=== PATIENT | female | born 1975 | race Caucasian/White ===

== ENCOUNTER 2017-05-25 23:20 | Emergency (ER) | payer OTHER ==
[~2017-05-25] VITALS: Ht 165.1 cm; Wt 112.3 kg
[~2017-05-25 23:20] MED LIST: ALBU8.5H5; FLUT1DIS3 INH; IPRA3AMP NPPB; IPRA3AMP18; PRED10TA PO; [UNRECOGNIZED DRUG - CODE] PO
[2017-05-25] MEDS ORDERED: ALBUTEROL/IPRATROPIUM 2.5MG/0.5MG, 3 ML ONE ×2 (23:50)
[2017-05-26] MEDS ORDERED: SODIUM CHLORIDE 0.9% 1,000ML IVBOLUS ONE
[2017-05-26] MEDS ORDERED: methylPREDNISolone SOD SUCC 125 MG/2 ML IVP ONE
[2017-05-26] MEDS ORDERED: KETOROLAC 30 MG/1 ML ONE
[2017-05-26] MEDS ORDERED: KETOROLAC 30 MG/1 ML IVPush ONE
[2017-05-26] MEDS ORDERED: methylPREDNISolone SOD SUCC 125 MG/2 ML ONE
[2017-05-26] MEDS ORDERED: ALBUTEROL SULFATE 2.5 MG/3 ML NPPB ONE
[2017-05-26 00:25] VITALS: BP 108/73
[2017-05-26 00:25] LABS: HEMATOCRIT 44.1 % (34.6-47.8); HEMOGLOBIN 14.9 g/dL (11.7-16.4); WHITE BLOOD COUNT 12.3 x10^3/uL (3.4-10)
[2017-05-26] MEDS ORDERED: ALBUTEROL/IPRATROPIUM 2.5MG/0.5MG, 3 ML NEB ONE (00:30)
[2017-05-26 00:37] LABS: BLOOD UREA NITROGEN 11 mg/dL (7-18)
[2017-05-26 00:44] LABS: IS PT STATUS REG ER OR PRE ER? YES
== END 2017-05-26 01:11 | disposition home or self-care (01) ==
LOC: ED 23:59
DX: J44.1 Chronic obstructive pulmonary disease with (acute) exacerbation (principal)
CPT/HCPCS: 36415; 71010; 80048; 82040; 84484; 85025; 93005; 94640; 96361; 96374; 96375; 99285; J1885; J2930; J7030; J7620

== ENCOUNTER 2017-06-09 22:29 | Emergency (ER) | payer OTHER ==
[2017-06-09] MEDS ORDERED: ALBUTEROL/IPRATROPIUM 2.5MG/0.5MG, 3 ML NPPB SCH (23:00)
[2017-06-10] MEDS ORDERED: MAGNESIUM SULFATE PMX 2GM/50ML 50 ML IV ONE (00:30)
[2017-06-10] MEDS ORDERED: PLEASE ENTER WEIGHT MC SCH (01:00)
[2017-06-10 01:03] LABS: BLOOD UREA NITROGEN 19 mg/dL (7-18)
[2017-06-10 01:16] VITALS: BP 134/77
== END 2017-06-10 01:37 | disposition home or self-care (01) ==
LOC: ED 22:43
DX: J45.31 Mild persistent asthma with (acute) exacerbation (principal); J44.9 Chronic obstructive pulmonary disease, unspecified
CPT/HCPCS: 36415; 80048; 93005; 94640; 99285; J3475; J7512; J7620

== ENCOUNTER 2017-07-07 11:10 | Emergency (ER) | payer SELFPAY ==
[~2017-07-07] VITALS: Ht 167.6 cm; Wt 105.0 kg
[2017-07-07] MEDS ORDERED: SODIUM CHLORIDE FLUSH 10ML SYR IVF ONE (11:30)
[2017-07-07] MEDS ORDERED: MAGNESIUM SULFATE 1 GM/2 ML IVPush ONE (11:30)
[2017-07-07] MEDS ORDERED: SODIUM CHLORIDE 0.9% 1,000ML IVBOLUS ONE (11:30)
[2017-07-07] MEDS ORDERED: methylPREDNISolone SOD SUCC 125 MG/2 ML IVP ONE (11:30)
[2017-07-07] MEDS ORDERED: methylPREDNISolone SOD SUCC 125 MG/2 ML ONE (11:38)
[2017-07-07] MEDS: ALBUTEROL/IPRATROPIUM 2.5MG/0.5MG, 3 ML NPPB SCH ×2 (11:38→13:40)
[2017-07-07] MEDS ORDERED: ALBUTEROL/IPRATROPIUM 2.5MG/0.5MG, 3 ML ONE ×2 (11:39→13:37)
[2017-07-07 12:01] LABS: HEMATOCRIT 45.9 % (34.6-47.8); HEMOGLOBIN 15.5 g/dL (11.7-16.4)
[2017-07-07 12:10] LABS: BLOOD UREA NITROGEN 10 mg/dL (7-18)
[2017-07-07] MEDS ORDERED: MAGNESIUM SULFATE 1 GM in SODIUM CHLORIDE 0.9% 50 ML IV ONE (13:00)
[2017-07-07 13:53] VITALS: BP 123/74
== END 2017-07-07 14:02 | disposition home or self-care (01) ==
LOC: ED 13:56
DX: J80 Acute respiratory distress syndrome (principal); J45.51 Severe persistent asthma with (acute) exacerbation; Z88.6 Allergy status to analgesic agent
CPT/HCPCS: 36415; 71010; 80048; 82040; 85025; 93005; 94640; 96361; 96365; 96375; 99291; J2930; J3475; J7030; J7620

== ENCOUNTER 2017-08-30 09:52 | Emergency (ER) | payer SELFPAY ==
[~2017-08-30] VITALS: Ht 167.6 cm; Wt 91.0 kg
[2017-08-30 10:35] LABS: HEMATOCRIT 45.5 % (34.6-47.8); HEMOGLOBIN 15.8 g/dL (11.7-16.4); WHITE BLOOD COUNT 8.9 x10^3/uL (3.4-10)
[2017-08-30 10:47] LABS: BLOOD UREA NITROGEN 12 mg/dL (7-18)
[2017-08-30] MEDS: ALBUTEROL SULFATE 2.5 MG/3 ML NPPB SCH ×2 (11:35→12:07)
[2017-08-30] MEDS ORDERED: ALBUTEROL SULFATE 2.5 MG/3 ML ONE ×2 (11:36→11:47)
[2017-08-30 12:29] VITALS: BP 119/73
== END 2017-08-30 13:23 | disposition home or self-care (01) ==
LOC: ED 12:24
DX: J45.901 Unspecified asthma with (acute) exacerbation (principal); J44.9 Chronic obstructive pulmonary disease, unspecified; Z88.1 Allergy status to other antibiotic agents
CPT/HCPCS: 36415; 80048; 82040; 83605; 85025; 87040; 93005; 94640; 99291; J7512; J7613

== ENCOUNTER 2017-10-19 15:40 | Emergency (ER) | payer OTHER ==
[~2017-10-19] VITALS: Ht 167.6 cm; Wt 100.0 kg
[~2017-10-19 15:40] MED LIST changes: +AZIT500V8 PO; -[UNRECOGNIZED DRUG - CODE] PO
[2017-10-19] MEDS ORDERED: ALBUTEROL/IPRATROPIUM 2.5MG/0.5MG, 3 ML NPPB ONE (16:00)
[2017-10-19] MEDS ORDERED: SODIUM CHLORIDE FLUSH 10ML SYR IVF ONE (16:00)
[2017-10-19] MEDS ORDERED: methylPREDNISolone SOD SUCC 125 MG/2 ML IVP ONE (16:00)
[2017-10-19] MEDS ORDERED: ALBUTEROL/IPRATROPIUM 2.5MG/0.5MG, 3 ML ONE ×2 (16:12→21:52)
[2017-10-19] MEDS ORDERED: ALBUTEROL 0.5%, 20ML ONE (16:21)
[2017-10-19] MEDS ORDERED: methylPREDNISolone SOD SUCC 125 MG/2 ML ONE (16:26)
[2017-10-19] MEDS ORDERED: ALBUTEROL 0.5%, 20ML NPPBCONT ONE (16:30)
[2017-10-19] MEDS ORDERED: SODIUM CHLORIDE 0.9% 1,000 ML IV ONE (16:43)
[2017-10-19] MEDS ORDERED: ONDANSETRON 2MG/ML, 2ML IVPush ONE (17:00)
[2017-10-19] MEDS ORDERED: MORPHINE SULFATE 4 MG/ML, 1ML ONE ×3 (17:03→19:11)
[2017-10-19] MEDS ORDERED: ONDANSETRON 2MG/ML, 2ML ONE (17:03)
[2017-10-19 17:08] LABS: BASOPHILS # (AUTO) 0.22 x10^3/uL (0-0.1); BASOPHILS % (AUTO) 2 % (0-1); EOSINOPHILS # (AUTO) 1.01 x10^3/uL (0-0.4); EOSINOPHILS % (AUTO) 7 % (1-7); LYMPHOCYTES # (AUTO) 2.22 x10^3/uL (1-3.4); LYMPHOCYTES % (AUTO) 16 % (22-44); MD NO; MEAN CORPUSCULAR HEMOGLOBIN 32.1 pg (27.0-34.8); MEAN CORPUSCULAR HGB CONC 33.6 g/dL (32.4-35.8); MEAN CORPUSCULAR VOLUME 95.7 fL (80-100); MEAN PLATELET VOLUME 9.9 fL (7.4-10.4); MONOCYTES # (AUTO) 1.27 x10^3/uL (0.2-0.8); MONOCYTES % (AUTO) 9 % (2-9); NEUTROPHILS # (AUTO) 9.31 x10^3/uL (1.8-6.8); NEUTROPHILS % (AUTO) 66 % (42-75); PLATELET COUNT 213 x10^3/uL (130-400); RED BLOOD COUNT 4.81 x10^6/uL (3.82-5.3); RED CELL DISTRIBUTION WIDTH 13.4 % (9.6-15.2)
[2017-10-19 17:16] LABS: ANION GAP 6 mmol/L (5-15); CALCIUM 8.5 mg/dL (8.5-10.1); CHLORIDE 110 mmol/L (98-107); CREATININE 1.05 mg/dL (0.55-1.02)
[2017-10-19] MEDS ORDERED: MAGNESIUM SULFATE PMX 2GM/50ML 50 ML IV ONE (17:30)
[2017-10-19] MEDS ORDERED: SODIUM CHLORIDE 0.9% 1,000ML IVBOLUS ONE (17:30)
[2017-10-19] MEDS: MORPHINE SULFATE 4 MG/ML, 1ML IVPush PRN ×2 (17:52→18:33)
[2017-10-19] MEDS ORDERED: HYDROmorphone 2 MG/ML, 1ML ONE (19:11)
[2017-10-19 22:32] VITALS: BP 127/66
== END 2017-10-20 01:19 | disposition home or self-care (01) ==
LOC: ED 17:39 → EDIP 17:40 → UNDOADMIN 17:40 → ED 17:56
DX: J45.52 Severe persistent asthma with status asthmaticus (principal); J44.9 Chronic obstructive pulmonary disease, unspecified
CPT/HCPCS: 36415; 36600; 71045; 80048; 82803; 83880; 85025; 93005; 94640; 94644; 96361; 96365; 96375; 96376; 99291; J2405; J2930; J3475; J7030; J7620

== ENCOUNTER 2017-11-11 22:01 | Emergency (ER) | payer OTHER ==
[~2017-11-11] VITALS: Ht 167.6 cm; Wt 104.5 kg
[2017-11-11] MEDS ORDERED: ALBUTEROL/IPRATROPIUM 2.5MG/0.5MG, 3 ML NPPB ONE (22:30)
[2017-11-11 23:25] LABS: BASOPHILS # (AUTO) 0.12 x10^3/uL (0-0.1); BASOPHILS % (AUTO) 2 % (0-1); EOSINOPHILS # (AUTO) 0.69 x10^3/uL (0-0.4); EOSINOPHILS % (AUTO) 8 % (1-7); LYMPHOCYTES # (AUTO) 1.42 x10^3/uL (1-3.4); LYMPHOCYTES % (AUTO) 17 % (22-44); MD NO; MEAN CORPUSCULAR HEMOGLOBIN 32.6 pg (27.0-34.8); MEAN CORPUSCULAR HGB CONC 34.2 g/dL (32.4-35.8); MEAN CORPUSCULAR VOLUME 95.3 fL (80-100); MEAN PLATELET VOLUME 8.9 fL (7.4-10.4); MONOCYTES % (AUTO) 8 % (2-9); NEUTROPHILS # (AUTO) 5.37 x10^3/uL (1.8-6.8); NEUTROPHILS % (AUTO) 65 % (42-75); PLATELET COUNT 256 x10^3/uL (130-400); RED BLOOD COUNT 4.56 x10^6/uL (3.82-5.3); RED CELL DISTRIBUTION WIDTH 13.2 % (9.6-15.2)
[2017-11-11 23:27] LABS: ALANINE AMINOTRANSFERASE 16 U/L (12-78); ALBUMIN 3.2 g/dL (3.4-5.0); ANION GAP 7 mmol/L (5-15); CALCIUM 8.4 mg/dL (8.5-10.1); CHLORIDE 111 mmol/L (98-107); CREATININE 1.01 mg/dL (0.55-1.02)
[2017-11-11 23:31] LABS: ALKALINE PHOSPHATASE 72 U/L (45-117); BILIRUBIN,TOTAL 0.2 mg/dL (0.2-1.0); TOTAL PROTEIN 6.9 g/dL (6.4-8.2)
[2017-11-11] MEDS ORDERED: ALBUTEROL/IPRATROPIUM 2.5MG/0.5MG, 3 ML ONE (23:46)
[2017-11-11 23:50] VITALS: BP 117/67
== END 2017-11-12 00:24 | disposition home or self-care (01) ==
LOC: ED 22:30
DX: J45.41 Moderate persistent asthma with (acute) exacerbation (principal); J45.42 Moderate persistent asthma with status asthmaticus; J45.21 Mild intermittent asthma with (acute) exacerbation; J45.22 Mild intermittent asthma with status asthmaticus; F17.210 Nicotine dependence, cigarettes, uncomplicated; J43.9 Emphysema, unspecified
CPT/HCPCS: 36415; 71046; 80053; 84703; 85025; 93005; 94640; 99285; J7512; J7620

== ENCOUNTER 2017-11-25 14:17 | Inpatient (IN) | payer OTHER ==
[~2017-11-25] VITALS: Ht 167.6 cm; Wt 114.4 kg
[~2017-11-25 14:17] MED LIST changes: -IPRA3AMP18; +IPRA3AMP18 INH
[2017-11-25] MEDS ORDERED: ALBUTEROL/IPRATROPIUM 2.5MG/0.5MG, 3 ML NPPB ONE (15:00)
[2017-11-25] MEDS ORDERED: ALBUTEROL/IPRATROPIUM 2.5MG/0.5MG, 3 ML ONE ×2 (15:53→15:55)
[2017-11-25] MEDS ORDERED: ALBUTEROL SULFATE 2.5MG/0.5ML NPPB ONE (15:55)
[2017-11-25] MEDS ORDERED: ALBUTEROL SULFATE 2.5MG/0.5ML ONE (15:55)
[2017-11-25] MEDS ORDERED: KETOROLAC 30 MG/1 ML ONE (16:44)
[2017-11-25] MEDS ORDERED: ONDANSETRON 2MG/ML, 2ML IVPush PRN (17:30)
[2017-11-25] MEDS ORDERED: KETOROLAC 30 MG/1 ML IVPush ONE (17:30)
[2017-11-25] MEDS ORDERED: LABETALOL 5MG/ML, 20ML IVPush PRN (17:30)
[2017-11-25] MEDS ORDERED: ONDANSETRON ODT 4 MG PO PRN (17:30)
[2017-11-25] MEDS ORDERED: methylPREDNISolone SOD SUCC 125 MG/2 ML ONE (17:50)
[2017-11-25] MEDS ORDERED: ENOXAPARIN 40 MG/0.4 ML ONE (17:50)
[2017-11-25] MEDS: ENOXAPARIN 40 MG/0.4 ML SQ SCH (17:52)
[2017-11-25] MEDS: methylPREDNISolone SOD SUCC 125 MG/2 ML IVPush SCH ×2 (17:52→23:57)
[2017-11-25 17:59] LABS: MEAN CORPUSCULAR HEMOGLOBIN 32.6 pg (27.0-34.8); MEAN CORPUSCULAR HGB CONC 33.8 g/dL (32.4-35.8); MEAN CORPUSCULAR VOLUME 96.3 fL (80-100); MEAN PLATELET VOLUME 9.1 fL (7.4-10.4); PLATELET COUNT 238 x10^3/uL (130-400)
[2017-11-25 18:02] LABS: ALBUMIN 3.4 g/dL (3.4-5.0); ANION GAP 10 mmol/L (5-15); CALCIUM 8.6 mg/dL (8.5-10.1); CHLORIDE 111 mmol/L (98-107)
[2017-11-25 18:06] LABS: ALANINE AMINOTRANSFERASE 16 U/L (12-78); ALKALINE PHOSPHATASE 68 U/L (45-117); BILIRUBIN,TOTAL 0.5 mg/dL (0.2-1.0); CREATININE 1.02 mg/dL (0.55-1.02); FREE T4 (FREE THYROXINE) 0.86 ng/dL (0.76-1.46); TOTAL PROTEIN 6.8 g/dL (6.4-8.2)
[2017-11-25] MEDS ORDERED: CEFTRIAXONE PMX 2GM/50ML 50 ML IV SCH (18:30)
[2017-11-25 19:07] LABS: MD YES
[2017-11-25 19:11] LABS: <PLATELET ESTIMATE> ADEQUATE; <PLT MORPHOLOGY> NORMAL PLT MORPH; <RBC MORPHOLOGY> NORMAL; BAND#(MANUAL) 0.71 x10^3/uL; BANDS%(MANUAL) 4 % (0-7); EOS#(MANUAL) 0.36 x10^3/uL (0.0-0.4); EOS% (MANUAL) 2 % (1-7); LYMPH#(MANUAL) 1.07 x10^3/uL (1-3.4); LYMPHS% (MANUAL) 6 % (22-44); MONOS#(MANUAL) 1.07 x10^3/uL (0.3-2.7); MONOS% (MANUAL) 6 % (2-9); SEGS% (MANUAL) 82 % (42-75)
[2017-11-25 20:00] VITALS: BP 100/69
[2017-11-25] MEDS: ALBUTEROL/IPRATROPIUM 2.5MG/0.5MG, 3 ML NPPB SCH ×2 (20:00→23:34)
[2017-11-25] MEDS ORDERED: BENZONATATE 100 MG CAPSULE PO PRN (20:30)
[2017-11-25] MEDS ORDERED: MAALOX/HYOSCYAMINE/LIDOCAINE 45 ML BTL PO ONE (21:30)
[2017-11-25] MEDS: SODIUM CHLORIDE 0.9% 1,000 ML IV SCH (21:35)
[2017-11-25] MEDS: OMEPRAZOLE 20 MG CAPSULE.DR PO SCH (21:36)
[2017-11-25] MEDS: DOXYCYCLINE 100MG TABLET PO SCH (21:36)
[2017-11-25] MEDS: KETOROLAC 30 MG/1 ML IVPush SCH (22:03)
[2017-11-26 03:43] VITALS: BP 108/75
[2017-11-26] MEDS: KETOROLAC 30 MG/1 ML IVPush SCH ×3 (04:00→18:11)
[2017-11-26 04:30] LABS: ALANINE AMINOTRANSFERASE 16 U/L (12-78); ALBUMIN 3.2 g/dL (3.4-5.0); ANION GAP 11 mmol/L (5-15); CALCIUM 8.8 mg/dL (8.5-10.1); CHLORIDE 107 mmol/L (98-107)
[2017-11-26 04:32] LABS: ALKALINE PHOSPHATASE 66 U/L (45-117); BILIRUBIN,TOTAL 0.5 mg/dL (0.2-1.0); TOTAL PROTEIN 6.9 g/dL (6.4-8.2)
[2017-11-26] MEDS: methylPREDNISolone SOD SUCC 125 MG/2 ML IVPush SCH (05:41)
[2017-11-26 07:29] VITALS: BP 96/66
[2017-11-26] MEDS: ALBUTEROL/IPRATROPIUM 2.5MG/0.5MG, 3 ML NPPB SCH ×3 (07:30→15:14)
[2017-11-26 08:02] LABS: BASOPHILS # (AUTO) 0.05 x10^3/uL (0-0.1); BASOPHILS % (AUTO) 1 % (0-1); EOSINOPHILS % (AUTO) 0 % (1-7); LYMPHOCYTES # (AUTO) 0.33 x10^3/uL (1-3.4); LYMPHOCYTES % (AUTO) 4 % (22-44); MD NO; MEAN CORPUSCULAR HEMOGLOBIN 32.5 pg (27.0-34.8); MEAN CORPUSCULAR HGB CONC 34.1 g/dL (32.4-35.8); MEAN CORPUSCULAR VOLUME 95.3 fL (80-100); MEAN PLATELET VOLUME 11.4 fL (7.4-10.4); MONOCYTES # (AUTO) 0.06 x10^3/uL (0.2-0.8); MONOCYTES % (AUTO) 1 % (2-9); NEUTROPHILS # (AUTO) 7.25 x10^3/uL (1.8-6.8); NEUTROPHILS % (AUTO) 94 % (42-75); PLATELET COUNT 234 x10^3/uL (130-400); RED BLOOD COUNT 4.63 x10^6/uL (3.82-5.3); RED CELL DISTRIBUTION WIDTH 13.8 % (9.6-15.2)
[2017-11-26] MEDS ORDERED: FLUTICASONE/VILANTEROL 100-25MCG/INH INH SCH (09:00)
[2017-11-26] MEDS ORDERED: SENNA/DOCUSATE TABLET PO SCH (09:00)
[2017-11-26] MEDS ORDERED: SODIUM PHOSPHATE 4 MEQ/ML IV SCH (09:30)
[2017-11-26] MEDS: OMEPRAZOLE 20 MG CAPSULE.DR PO SCH (09:44)
[2017-11-26] MEDS: DOXYCYCLINE 100MG TABLET PO SCH (09:44)
[2017-11-26] MEDS ORDERED: ACETAMINOPHEN 325 MG TABLET PO PRN (10:00)
[2017-11-26] MEDS ORDERED: SODIUM PHOSPHATE 30 MMOL in SODIUM CHLORIDE 0.9% 500 ML IV ONE ×2 (10:00→14:30)
[2017-11-26] MEDS: SODIUM CHLORIDE 0.9% 1,000 ML IV SCH (10:30)
[2017-11-26] MEDS ORDERED: NICOTINE 21 MG/24 HR PATCH.TD24 TD SCH (10:30)
[2017-11-26 13:13] VITALS: BP 110/71
[2017-11-26] MEDS ORDERED: OMEP-110 PO (14:59)
[2017-11-26] MEDS ORDERED: DOXY100T PO (14:59)
[2017-11-26] MEDS ORDERED: PRED10TA PO (14:59)
[2017-11-26] MEDS ORDERED: FLU VACC QS2017-18 (36MOS+) UP/PF 0.5 ML IM-VACC ONE (18:00)
[2017-11-26] MEDS: ENOXAPARIN 40 MG/0.4 ML SQ SCH (18:11)
== END 2017-11-26 19:04 | disposition home or self-care (01) | DRG 189 ==
LOC: ED 16:14 → EDIP 17:24 → 3NW 18:24
PROVIDERS: ADMIT Internal Medicine; ATTEND Internal Medicine
DX: J96.01 Acute respiratory failure with hypoxia (principal); N17.9 Acute kidney failure, unspecified; J44.1 Chronic obstructive pulmonary disease with (acute) exacerbation; J45.31 Mild persistent asthma with (acute) exacerbation; E66.01 Morbid (severe) obesity due to excess calories; E44.1 Mild protein-calorie malnutrition; Z68.41 Body mass index [BMI] 40.0-44.9, adult; F17.200 Nicotine dependence, unspecified, uncomplicated; D72.829 Elevated white blood cell count, unspecified; R73.9 Hyperglycemia, unspecified; M54.9 Dorsalgia, unspecified; F41.0 Panic disorder [episodic paroxysmal anxiety]; G89.29 Other chronic pain; J32.9 Chronic sinusitis, unspecified; Z82.3 Family history of stroke; Z82.5 Family history of asthma and other chronic lower respiratory diseases; Z83.3 Family history of diabetes mellitus; Z88.6 Allergy status to analgesic agent; Z23 Encounter for immunization
CPT/HCPCS: 36415; 71046; 80053; 83735; 84100; 84439; 85025; 90686; 93005; 94640; 96374; J1650; J1885; J7611; J7620; J2930; J7030; J7040; J7512

== ENCOUNTER 2018-01-27 05:00 | Emergency (ER) | payer OTHER ==
[~2018-01-27] VITALS: Ht 167.6 cm; Wt 75.0 kg
[~2018-01-27 05:00] MED LIST changes: +DOXY100T PO; +OMEP-110 PO
[2018-01-27] MEDS ORDERED: ALBUTEROL/IPRATROPIUM 2.5MG/0.5MG, 3 ML ONE (05:19)
[2018-01-27] MEDS ORDERED: ALBUTEROL/IPRATROPIUM 2.5MG/0.5MG, 3 ML NEB ONE (05:30)
[2018-01-27 06:46] VITALS: BP 115/75
== END 2018-01-27 07:08 | disposition home or self-care (01) ==
LOC: ED 06:37
DX: J45.41 Moderate persistent asthma with (acute) exacerbation (principal); Z88.6 Allergy status to analgesic agent
CPT/HCPCS: 71045; 93005; 94640; 99284; J7512; J7620

== ENCOUNTER 2018-03-15 23:24 | Inpatient (IN) | payer SELFPAY ==
[~2018-03-15] VITALS: Ht 167.6 cm; Wt 120.6 kg
[2018-03-15] MEDS ORDERED: ALBUTEROL 0.5%, 20ML NPPB SCH (23:30)
[2018-03-15] MEDS ORDERED: methylPREDNISolone SOD SUCC 125 MG/2 ML IVP ONE (23:30)
[2018-03-15] MEDS ORDERED: methylPREDNISolone SOD SUCC 125 MG/2 ML ONE (23:33)
[2018-03-15] MEDS ORDERED: ALBUTEROL SULFATE 2.5 MG/3 ML ONE (23:43)
[2018-03-15 23:51] LABS: BASOPHILS # (AUTO) 0.21 x10^3/uL (0-0.1); BASOPHILS % (AUTO) 1 % (0-1); EOSINOPHILS % (AUTO) 5 % (1-7); LYMPHOCYTES # (AUTO) 2.02 x10^3/uL (1-3.4); LYMPHOCYTES % (AUTO) 13 % (22-44); MD NO; MEAN CORPUSCULAR HEMOGLOBIN 33.7 pg (27.0-34.8); MEAN CORPUSCULAR VOLUME 99.3 fL (80-100); MONOCYTES # (AUTO) 0.69 x10^3/uL (0.2-0.8); MONOCYTES % (AUTO) 4 % (2-9); NEUTROPHILS # (AUTO) 11.86 x10^3/uL (1.8-6.8); NEUTROPHILS % (AUTO) 76 % (42-75); PLATELET COUNT 282 x10^3/uL (130-400); RED BLOOD COUNT 4.48 x10^6/uL (3.82-5.3); RED CELL DISTRIBUTION WIDTH 14.1 % (9.6-15.2)
[2018-03-16 00:03] LABS: ALBUMIN 3.1 g/dL (3.4-5.0); ANION GAP 9 mmol/L (5-15); CALCIUM 8.6 mg/dL (8.5-10.1); CHLORIDE 110 mmol/L (98-107); CREATININE 0.96 mg/dL (0.55-1.02)
[2018-03-16 00:07] LABS: TROPONIN I < 0.015 ng/mL (0.000-0.045)
[2018-03-16] MEDS ORDERED: ONDANSETRON 2MG/ML, 2ML IVPush PRN ×2 (00:30→01:00)
[2018-03-16] MEDS ORDERED: hydrALAzine 20 MG/ML, 1ML IVPush PRN (01:00)
[2018-03-16] MEDS ORDERED: KETOROLAC 30 MG/1 ML IVPush PRN (01:00)
[2018-03-16] MEDS: methylPREDNISolone SOD SUCC 125 MG/2 ML IVPush SCH ×3 (01:00→13:54)
[2018-03-16] MEDS ORDERED: ACETAMINOPHEN 325 MG TABLET PO PRN (01:00)
[2018-03-16] MEDS ORDERED: CEFTRIAXONE PMX 1GM/50ML 50 ML IV SCH (01:00)
[2018-03-16] MEDS ORDERED: POLYETHYLENE GLYCOL 17 GM PACKET PO PRN (01:00)
[2018-03-16] MEDS ORDERED: DOCUSATE 100 MG CAPSULE PO PRN (01:00)
[2018-03-16] MEDS ORDERED: ENOXAPARIN 40 MG/0.4 ML SQ SCH (01:00)
[2018-03-16] MEDS ORDERED: BISACODYL 10 MG SUPP PR PRN (01:00)
[2018-03-16] MEDS ORDERED: ALBUTEROL/IPRATROPIUM 2.5MG/0.5MG, 3 ML IPPB SCH (01:00)
[2018-03-16] MEDS ORDERED: CEFTRIAXONE PMX 1GM/50ML 50 ML ONE (01:16)
[2018-03-16 01:47] VITALS: BP 112/70
[2018-03-16 02:04] VITALS: BP 95/59
[2018-03-16 02:08] VITALS: BP 112/70
[2018-03-16] MEDS: DOXYCYCLINE 100 MG in DEXTROSE 5% 250 ML IV SCH ×2 (02:35→13:54)
[2018-03-16] MEDS: ALBUTEROL/IPRATROPIUM 2.5MG/0.5MG, 3 ML IPPB SCH ×4 (03:00→14:23)
[2018-03-16] MEDS ORDERED: NICOTINE 14MG/24 HR PATCH.TD24 TD SCH (03:30)
[2018-03-16 08:06] VITALS: BP 117/76
[2018-03-16] MEDS ORDERED: GUAIFENESIN ER 600 MG TABLET PO SCH (09:00)
[2018-03-16] MEDS ORDERED: FLUTICASONE/VILANTEROL 100-25MCG/INH INH SCH (09:00)
[2018-03-16] MEDS ORDERED: SODIUM CHLORIDE FLUSH 10ML SYR IVF SCH (09:00)
[2018-03-16 14:49] VITALS: BP 123/79
[2018-03-16] MEDS ORDERED: PRED20TA PO (15:46)
== END 2018-03-16 15:20 | disposition home or self-care (01) | DRG 871 ==
LOC: ED 03-16 00:24 → EDIP 03-16 00:42 → 3NE 03-16 02:02
PROVIDERS: ADMIT Internal Medicine; ATTEND Internal Medicine
DX: A41.9 Sepsis, unspecified organism (principal); J96.01 Acute respiratory failure with hypoxia; E44.0 Moderate protein-calorie malnutrition; Z68.41 Body mass index [BMI] 40.0-44.9, adult; J44.0 Chronic obstructive pulmonary disease with (acute) lower respiratory infection; J44.1 Chronic obstructive pulmonary disease with (acute) exacerbation; F17.210 Nicotine dependence, cigarettes, uncomplicated; Z88.8 Allergy status to other drugs, medicaments and biological substances; G89.29 Other chronic pain; R73.9 Hyperglycemia, unspecified; J20.9 Acute bronchitis, unspecified; Z80.0 Family history of malignant neoplasm of digestive organs; Z80.3 Family history of malignant neoplasm of breast; Z82.3 Family history of stroke; Z82.5 Family history of asthma and other chronic lower respiratory diseases; Z53.21 Procedure and treatment not carried out due to patient leaving prior to being seen by health care provider
CPT/HCPCS: 36415; 71045; 80048; 82040; 84484; 85025; 93005; 94640; 94644; 96374; J0696; J7060; J7620; J2930

== ENCOUNTER 2018-07-03 05:48 | Emergency (ER) | payer OTHER ==
[~2018-07-03] VITALS: Ht 167.6 cm; Wt 112.8 kg
[~2018-07-03 05:48] MED LIST changes: -IPRA3AMP NPPB; +IPRA3AMP30 NPPB; +PRED20TA PO
[2018-07-03] MEDS ORDERED: ALBUTEROL/IPRATROPIUM 2.5MG/0.5MG, 3 ML ONE (06:15)
[2018-07-03] MEDS ORDERED: LIDOCAINE-MPF 1%, 5ML ONE (06:23)
[2018-07-03 07:24] VITALS: BP 104/74
== END 2018-07-03 07:45 | disposition home or self-care (01) ==
LOC: ED 07:35
DX: J45.41 Moderate persistent asthma with (acute) exacerbation (principal); R09.02 Hypoxemia; J44.9 Chronic obstructive pulmonary disease, unspecified
CPT/HCPCS: 82962; 93005; 94640; 99283; J7512

== ENCOUNTER 2018-07-16 16:00 | Inpatient (IN) | payer SELFPAY ==
[~2018-07-16] VITALS: Ht 167.6 cm; Wt 115.8 kg
[2018-07-16] MEDS ORDERED: ALBUTEROL SULFATE 2.5 MG/3 ML ONE (16:19)
[2018-07-16] MEDS ORDERED: methylPREDNISolone SOD SUCC 125 MG/2 ML ONE (16:20)
[2018-07-16] MEDS ORDERED: ALBUTEROL SULFATE 2.5 MG/3 ML NPPB ONE ×2 (16:30→17:00)
[2018-07-16] MEDS ORDERED: MAGNESIUM SULFATE PMX 2GM/50ML 50 ML IV ONE (16:30)
[2018-07-16] MEDS ORDERED: SODIUM CHLORIDE FLUSH 10ML SYR IVF ONE (16:30)
[2018-07-16] MEDS ORDERED: methylPREDNISolone SOD SUCC 125 MG/2 ML IVP ONE (16:30)
[2018-07-16 16:43] LABS: BASOPHILS % (AUTO) 2 % (0-1); EOSINOPHILS # (AUTO) 0.85 x10^3/uL (0-0.4); EOSINOPHILS % (AUTO) 6 % (1-7); LYMPHOCYTES # (AUTO) 1.74 x10^3/uL (1-3.4); LYMPHOCYTES % (AUTO) 13 % (22-44); MD NO; MEAN CORPUSCULAR HEMOGLOBIN 33.3 pg (27.0-34.8); MEAN CORPUSCULAR HGB CONC 34.3 g/dL (32.4-35.8); MEAN CORPUSCULAR VOLUME 97.1 fL (80-100); MEAN PLATELET VOLUME 8.6 fL (7.4-10.4); MONOCYTES # (AUTO) 0.85 x10^3/uL (0.2-0.8); MONOCYTES % (AUTO) 6 % (2-9); NEUTROPHILS # (AUTO) 10.14 x10^3/uL (1.8-6.8); NEUTROPHILS % (AUTO) 74 % (42-75); PLATELET COUNT 235 x10^3/uL (130-400); RED BLOOD COUNT 4.62 x10^6/uL (3.82-5.3); RED CELL DISTRIBUTION WIDTH 13.8 % (9.6-15.2)
[2018-07-16 16:57] LABS: ALBUMIN 3.2 g/dL (3.4-5.0); ANION GAP 9 mmol/L (5-15); CALCIUM 8.9 mg/dL (8.5-10.1); CHLORIDE 111 mmol/L (98-107); CREATININE 0.95 mg/dL (0.55-1.02)
[2018-07-16] MEDS ORDERED: PLEASE ENTER WEIGHT MC SCH (17:30)
[2018-07-16] MEDS ORDERED: ONDANSETRON 2MG/ML, 2ML IVPush PRN (17:30)
[2018-07-16] MEDS ORDERED: morphine SULFATE 10 MG/ML, 1ML IVPush PRN (17:30)
[2018-07-16] MEDS ORDERED: AZITHROMYCIN 500 MG in SODIUM CHLORIDE 0.9% 250 ML IV SCH (17:30)
[2018-07-16] MEDS ORDERED: ACETAMINOPHEN 325 MG TABLET PO PRN (17:30)
[2018-07-16] MEDS ORDERED: ENALAPRILAT 1.25 MG/ML, 2ML IVPush PRN (17:30)
[2018-07-16] MEDS ORDERED: ENOXAPARIN 40 MG/0.4 ML SQ SCH (17:30)
[2018-07-16] MEDS ORDERED: ALBUTEROL/IPRATROPIUM 2.5MG/0.5MG, 3 ML HHN SCH (17:30)
[2018-07-16 18:00] LABS: FREE T4 (FREE THYROXINE) 0.79 ng/dL (0.76-1.46); TROPONIN I < 0.015 ng/mL (0.000-0.045)
[2018-07-16 18:23] LABS: HCT (SEDRATE) 44.8 % (34.6-47.8)
[2018-07-16] MEDS: methylPREDNISolone SOD SUCC 125 MG/2 ML IVPush SCH (18:24)
[2018-07-16] MEDS ORDERED: ALBUTEROL SULFATE 2.5 MG/3 ML NPPB PRN (19:30)
[2018-07-16] MEDS: ALBUTEROL/IPRATROPIUM 2.5MG/0.5MG, 3 ML HHN SCH (20:00)
[2018-07-16] MEDS: NICOTINE 14MG/24 HR PATCH.TD24 TD SCH (21:54)
[2018-07-16] MEDS: GUAIFENESIN 200 MG TABLET PO SCH (21:55)
[2018-07-16] MEDS: HYDROcodone/APAP 5/325 TABLET PO PRN (22:06)
[2018-07-17 00:09] LABS: TROPONIN I < 0.015 ng/mL (0.000-0.045)
[2018-07-17 00:54] VITALS: BP 105/71
[2018-07-17] MEDS: methylPREDNISolone SOD SUCC 125 MG/2 ML IVPush SCH ×3 (01:29→10:13)
[2018-07-17] MEDS: GUAIFENESIN 200 MG TABLET PO SCH ×2 (06:08→10:13)
[2018-07-17] MEDS: HYDROcodone/APAP 5/325 TABLET PO PRN (06:16)
[2018-07-17 06:35] LABS: MICROSCOPIC NOT IND
[2018-07-17 06:40] LABS: CULTURE INDICATED? NO
[2018-07-17] MEDS ORDERED: OMEPRAZOLE 20 MG CAPSULE.DR PO SCH (07:30)
[2018-07-17 07:40] VITALS: BP 110/69
[2018-07-17] MEDS: ALBUTEROL/IPRATROPIUM 2.5MG/0.5MG, 3 ML HHN SCH (11:45)
[2018-07-17] MEDS: NICOTINE 14MG/24 HR PATCH.TD24 TD SCH (11:49)
[2018-07-17] MEDS ORDERED: PRED20TA PO (11:51)
[2018-07-17] MEDS ORDERED: GUAI200T3 PO (11:51)
[2018-07-17] MEDS ORDERED: NICO-486 TD (11:51)
[2018-07-17] MEDS ORDERED: IPRA3AMP30 NPPB (11:51)
[2018-07-17] MEDS ORDERED: ALBU18HF INH (11:51)
[2018-07-17] MEDS ORDERED: AZIT250T PO (11:51)
== END 2018-07-17 14:45 | disposition home or self-care (01) | DRG 202 ==
LOC: ED 18:00 → EDIP 18:47 → 4WST 18:48
PROVIDERS: ADMIT Internal Medicine; ATTEND Internal Medicine
DX: J45.42 Moderate persistent asthma with status asthmaticus (principal); E87.2 Acidosis; J44.1 Chronic obstructive pulmonary disease with (acute) exacerbation; Z68.41 Body mass index [BMI] 40.0-44.9, adult; D72.829 Elevated white blood cell count, unspecified; E66.01 Morbid (severe) obesity due to excess calories; F17.200 Nicotine dependence, unspecified, uncomplicated; R06.03 Acute respiratory distress; R32 Unspecified urinary incontinence; Z80.0 Family history of malignant neoplasm of digestive organs; Z88.0 Allergy status to penicillin
CPT/HCPCS: 36415; 99291; J7613; J7620; 71045; 80048; 81003; 82040; 83605; 84439; 84443; 84484; 85025; 85651; 87040; 93005; 94640; 96374; 96375; G0378; J0456; J1650; J2930; J3475; J7050

== ENCOUNTER 2018-09-16 18:09 | Emergency (ER) | payer SELFPAY ==
[~2018-09-16] VITALS: Ht 167.6 cm; Wt 100.0 kg
[~2018-09-16 18:09] MED LIST changes: +ALBU18HF INH; +AZIT250T PO; +GUAI200T3 PO; +NICO-486 TD
[2018-09-16] MEDS ORDERED: ALBUTEROL/IPRATROPIUM 2.5MG/0.5MG, 3 ML NPPB ONE (18:30)
[2018-09-16] MEDS ORDERED: ALBUTEROL/IPRATROPIUM 2.5MG/0.5MG, 3 ML ONE ×3 (18:39→19:28)
--- NOTE | 2018-09-16 18:43 | NUR ---
patient brought to room via wheelchair by gregorio Waldrop, patient reports SOB x "a few hours", cardiac cath technician/continuous pulse ox/Q 1hr vitals all initiated. patient refusing to attempt pursed-lip breathing, is irritable and non-receptive to breathing coaching by this RN. oxygen saturations at 86% prior to starting NRB, RT at bedside now for nebulizer. Sinus Tach on the monitor, normotensive, call light in reach, HOB at 60 degrees, patient appears slightly more relaxed after a couple minutes of nebulizer.
--- NOTE | 2018-09-16 18:55 | NUR ---
report recievedf eugenio grant rn. pt resting on gurney, call light within reach, rt at bedside
[2018-09-16] MEDS ORDERED: LORazepam 1MG TABLET PO ONE (19:30)
[2018-09-16] MEDS ORDERED: ALBUTEROL SULFATE 2.5 MG/3 ML NPPB PRN (19:30)
[2018-09-16] MEDS ORDERED: LORazepam 1MG TABLET ONE (19:42)
--- NOTE | 2018-09-16 19:46 | NUR ---
pt medicated per mar
--- NOTE | 2018-09-16 19:53 | NUR ---
provided pt with warm blankets for comfort, siderails up x2, call light within reach
[2018-09-16] MEDS ORDERED: DIAZEPAM 5 MG TABLET PO ONE (20:30)
[2018-09-16] MEDS ORDERED: DIAZEPAM 5 MG TABLET ONE (20:47)
[2018-09-16] MEDS ORDERED: ALBUTEROL/IPRATROPIUM 2.5MG/0.5MG, 3 ML NPPB PRN (21:00)
[2018-09-16 21:31] VITALS: BP 132/71
--- NOTE | 2018-09-16 21:31 | NUR ---
PT RESTING WITH EYES CLOSED, EASILY RESPONSE TO VERBAL RESPONSE, NADN, FAMILY AT BEDSIDE, CALL LIGHT WITHIN REACH.
[2018-09-16] MEDS ORDERED: ALBUTEROL/IPRATROPIUM 2.5MG/0.5MG, 3 ML NPPB SCH (23:00)
== END 2018-09-16 22:22 | disposition home or self-care (01) ==
LOC: ED 21:12
DX: J44.1 Chronic obstructive pulmonary disease with (acute) exacerbation (principal); Z87.891 Personal history of nicotine dependence
CPT/HCPCS: 71045; 94640; 99284; J7512; J7620

== ENCOUNTER 2018-09-28 19:38 | Inpatient (IN) | payer SELFPAY ==
[~2018-09-28] VITALS: Ht 167.6 cm; Wt 109.7 kg
--- NOTE | 2018-09-28 19:51 | NUR ---
PT TO ER [facility] WITH C/O SOB X TODAY DESPITE INHALER USE X 15, RT AT BED SIDE AT THIS TIME
[2018-09-28] MEDS ORDERED: SODIUM CHLORIDE 0.9% 1,000ML IVBOLUS ONE (20:00)
[2018-09-28] MEDS ORDERED: MAGNESIUM SULFATE PMX 2GM/50ML 50 ML IVPB ONE (20:00)
[2018-09-28] MEDS ORDERED: PLEASE ENTER HEIGHT AND WEIGHT MC SCH (20:00)
[2018-09-28] MEDS ORDERED: methylPREDNISolone SOD SUCC 125 MG/2 ML IVP ONE (20:00)
[2018-09-28] MEDS ORDERED: methylPREDNISolone SOD SUCC 125 MG/2 ML ONE (20:06)
[2018-09-28] MEDS ORDERED: LORazepam 2 MG/ML, 1ML ONE (20:17)
[2018-09-28 20:21] LABS: BASOPHILS # (AUTO) 0.26 x10^3/uL (0-0.1); BASOPHILS % (AUTO) 3 % (0-1); EOSINOPHILS # (AUTO) 1.35 x10^3/uL (0-0.4); EOSINOPHILS % (AUTO) 14 % (1-7); LYMPHOCYTES # (AUTO) 2.28 x10^3/uL (1-3.4); LYMPHOCYTES % (AUTO) 24 % (22-44); MD NO; MEAN CORPUSCULAR HGB CONC 34.1 g/dL (32.4-35.8); MEAN CORPUSCULAR VOLUME 96.9 fL (80-100); MEAN PLATELET VOLUME 9.3 fL (7.4-10.4); MONOCYTES # (AUTO) 0.67 x10^3/uL (0.2-0.8); MONOCYTES % (AUTO) 7 % (2-9); NEUTROPHILS # (AUTO) 5.01 x10^3/uL (1.8-6.8); NEUTROPHILS % (AUTO) 52 % (42-75); PLATELET COUNT 250 x10^3/uL (130-400); RED BLOOD COUNT 4.76 x10^6/uL (3.82-5.3); RED CELL DISTRIBUTION WIDTH 13.5 % (9.6-15.2)
--- NOTE | 2018-09-28 20:21 | NUR ---
MEDS GIVEN PER ERP ORDER. ATIVAN ORDER OBTAINED TO HELP WITH PT'S ANXIETY. PT ABLE TO BE REDIRECTED BUT ANXIOUS REGARDING LAB AND ABG DRAW. PT UPDATED ON POC. CALL LIGHT WITHIN REACH. VS UPDATED IN COMPUTER.
[2018-09-28] MEDS ORDERED: LORazepam 2 MG/ML, 1ML IVPush ONE (20:30)
[2018-09-28 20:31] LABS: ALANINE AMINOTRANSFERASE 15 U/L (12-78); ALBUMIN 3.4 g/dL (3.4-5.0); ANION GAP 8 mmol/L (5-15); CALCIUM 8.9 mg/dL (8.5-10.1); CHLORIDE 109 mmol/L (98-107); CREATININE 0.93 mg/dL (0.55-1.02)
[2018-09-28 20:33] LABS: ALKALINE PHOSPHATASE 74 U/L (45-117); BILIRUBIN,TOTAL 0.4 mg/dL (0.2-1.0); TOTAL PROTEIN 6.8 g/dL (6.4-8.2)
--- NOTE | 2018-09-28 21:31 | NUR ---
REPORT FROM GABRIELA ARAGON ASSUMED CARE OF PT,NAD AT THIS TIME AWAITING ADMIT ORDERS
--- NOTE | 2018-09-28 22:30 | NUR ---
AWAITING ADMIT BED AT THIS TIME
[2018-09-28] MEDS ORDERED: SODIUM CHLORIDE 0.9% 1,000 ML IV SCH (22:40)
[2018-09-28] MEDS ORDERED: BUDESONIDE 0.5 MG/2 ML INHA ONE (22:41)
[2018-09-28] MEDS ORDERED: ALBUTEROL/IPRATROPIUM 2.5MG/0.5MG, 3 ML ONE (22:41)
[2018-09-28] MEDS ORDERED: ALBUTEROL/IPRATROPIUM 2.5MG/0.5MG, 3 ML NPPB PRN (23:00)
[2018-09-28] MEDS ORDERED: POLYETHYLENE GLYCOL 17 GM PACKET PO PRN (23:00)
[2018-09-28] MEDS: NICOTINE 7 MG/24 HR PATCH.TD24 TD SCH (23:00)
[2018-09-28] MEDS: FLUTICASONE NASAL SPRAY 16GM NAS SCH (23:00)
[2018-09-28] MEDS ORDERED: ONDANSETRON 2MG/ML, 2ML IVPush PRN (23:00)
[2018-09-28] MEDS ORDERED: OXYcodone IR 5MG TABLET PO PRN (23:00)
[2018-09-28] MEDS ORDERED: ENOXAPARIN 40 MG/0.4 ML SQ SCH (23:00)
[2018-09-28] MEDS: ALBUTEROL/IPRATROPIUM 2.5MG/0.5MG, 3 ML NPPB SCH (23:00)
[2018-09-28] MEDS ORDERED: PROMETHAZINE 25 MG/ML, 1ML IM PRN (23:00)
[2018-09-28] MEDS ORDERED: DOCUSATE 100 MG CAPSULE PO PRN (23:00)
[2018-09-28] MEDS: DOXYCYCLINE 100MG TABLET PO SCH (23:00)
[2018-09-28] MEDS ORDERED: morphine SULFATE 10 MG/ML, 1ML IVPush PRN (23:00)
[2018-09-28] MEDS: methylPREDNISolone SOD SUCC 125 MG/2 ML IVPush SCH (23:00)
[2018-09-28] MEDS ORDERED: ONDANSETRON ODT 4 MG PO PRN (23:00)
[2018-09-28] MEDS ORDERED: BISACODYL 10 MG SUPP PR PRN (23:00)
[2018-09-28] MEDS ORDERED: hydrALAzine 20 MG/ML, 1ML IVPush PRN (23:00)
[2018-09-28] MEDS ORDERED: ACETAMINOPHEN 325 MG TABLET PO PRN (23:00)
[2018-09-28] MEDS ORDERED: GABAPENTIN 300 MG CAPSULE PO SCH (23:00)
[2018-09-28] MEDS: FAMOTIDINE 20 MG TABLET PO SCH (23:00)
[2018-09-28] MEDS ORDERED: CETIRIZINE 10 MG TABLET PO SCH (23:00)
[2018-09-28 23:11] LABS: FREE T4 (FREE THYROXINE) 0.81 ng/dL (0.76-1.46); THYROID STIMULATING HORMONE 2.31 mIU/L (0.358-3.740)
[2018-09-28] MEDS ORDERED: ENOXAPARIN 40 MG/0.4 ML ONE (23:21)
--- NOTE | 2018-09-28 23:47 | NUR ---
PT PLACED ON OXY MASK BY RT AT THIS TIME PT NOT TOLERATING NC
[2018-09-28] MEDS ORDERED: GABAPENTIN 300 MG CAPSULE ONE (23:59)
--- NOTE | 2018-09-29 00:24 | NUR ---
BREAK RN: PT. MOVED TO ED 17 AND PLACED ON HOSPITAL BED. ALL MONITORS RE-APPLIED. PT. PROVIDED WITH SANDWICH/CHIPS/MILK PER REQUEST FOR FOOD. PT. HAS CALL LIGHT AND HAS TV ON. DENIES NEEDS AT THIS TIME. ALL SAFETY MEASURS OBSERVED.
--- NOTE | 2018-09-29 02:42 | NUR ---
PT CONTINUES TO SLEEP IN NAD
[2018-09-29] MEDS: ALBUTEROL/IPRATROPIUM 2.5MG/0.5MG, 3 ML NPPB SCH ×4 (03:00→15:00)
[2018-09-29 05:39] VITALS: BP 106/69
[2018-09-29] MEDS: methylPREDNISolone SOD SUCC 125 MG/2 ML IVPush SCH ×2 (05:41→11:27)
[2018-09-29 05:51] LABS: MEAN CORPUSCULAR HGB CONC 33.8 g/dL (32.4-35.8); MEAN CORPUSCULAR VOLUME 97.6 fL (80-100); MEAN PLATELET VOLUME 9.9 fL (7.4-10.4); PLATELET COUNT 239 x10^3/uL (130-400); RED BLOOD COUNT 4.73 x10^6/uL (3.82-5.3); RED CELL DISTRIBUTION WIDTH 13.7 % (9.6-15.2)
[2018-09-29 06:00] LABS: ALBUMIN 3.2 g/dL (3.4-5.0); CALCIUM 8.7 mg/dL (8.5-10.1); CHLORIDE 111 mmol/L (98-107)
[2018-09-29 06:05] LABS: ALANINE AMINOTRANSFERASE 14 U/L (12-78); ALKALINE PHOSPHATASE 70 U/L (45-117); ANION GAP 8 mmol/L (5-15); BILIRUBIN,TOTAL 0.4 mg/dL (0.2-1.0); CHOL/HDL RATIO 2.9; CHOLESTEROL, TOTAL 194 mg/dL (140-239); CREATININE 0.89 mg/dL (0.55-1.02); HDL CHOL % 35 % (28-40); HDL CHOLESTEROL (DIRECT) 68 mg/dL (40-60); LDL CHOLESTEROL,CALCULATED 109 mg/dL (54-169); LDL/HDL RATIO 1.6 (0.5-3.0); TOTAL PROTEIN 6.7 g/dL (6.4-8.2); TRIGLYCERIDES 84 mg/dL (50-200); VLDL CHOLESTEROL 17 mg/dL (0-25)
[2018-09-29 06:09] LABS: BASOPHILS # (AUTO) 0.14 x10^3/uL (0-0.1); BASOPHILS % (AUTO) 3 % (0-1); EOSINOPHILS # (AUTO) 0.01 x10^3/uL (0-0.4); EOSINOPHILS % (AUTO) 0 % (1-7); LYMPHOCYTES # (AUTO) 0.35 x10^3/uL (1-3.4); LYMPHOCYTES % (AUTO) 7 % (22-44); MD SCAN; MONOCYTES # (AUTO) 0.02 x10^3/uL (0.2-0.8); MONOCYTES % (AUTO) 0 % (2-9); NEUTROPHILS # (AUTO) 4.49 x10^3/uL (1.8-6.8); NEUTROPHILS % (AUTO) 90 % (42-75)
[2018-09-29] MEDS ORDERED: BUDESONIDE 0.5 MG/2 ML INHA ONE (06:43)
[2018-09-29 08:27] VITALS: BP 102/66
[2018-09-29] MEDS ORDERED: GABAPENTIN 100 MG CAPSULE PO SCH (08:41)
[2018-09-29] MEDS: DOXYCYCLINE 100MG TABLET PO SCH (08:51)
[2018-09-29] MEDS: FLUTICASONE NASAL SPRAY 16GM NAS SCH (08:52)
[2018-09-29] MEDS: FAMOTIDINE 20 MG TABLET PO SCH (08:52)
[2018-09-29] MEDS: NICOTINE 7 MG/24 HR PATCH.TD24 TD SCH (08:54)
[2018-09-29] MEDS ORDERED: BUDESONIDE 0.5 MG/2 ML INHA NPPB SCH (09:00)
[2018-09-29] MEDS ORDERED: FLUT16SP NAS (12:17)
[2018-09-29] MEDS ORDERED: FAMO20TA7 PO (12:17)
[2018-09-29] MEDS ORDERED: PRED5TAB PO (12:17)
[2018-09-29] MEDS ORDERED: DOXY100T PO (12:17)
[2018-09-29] MEDS ORDERED: CETI10TA18 PO (12:17)
[2018-09-29] MEDS ORDERED: GABA-826 PO (12:17)
[2018-09-29] MEDS ORDERED: IPRA3AMP30 NPPB (12:17)
[2018-09-29 14:45] VITALS: BP 110/67
== END 2018-09-29 16:20 | disposition home or self-care (01) | DRG 189 ==
LOC: ED 21:25 → EDIP 22:40 → 4EST 09-29 05:24 → DCLOUNGE 09-29 16:06
PROVIDERS: ADMIT Internal Medicine; ATTEND Internal Medicine
DX: J96.01 Acute respiratory failure with hypoxia (principal); J44.1 Chronic obstructive pulmonary disease with (acute) exacerbation; J45.51 Severe persistent asthma with (acute) exacerbation; F17.210 Nicotine dependence, cigarettes, uncomplicated; K21.9 Gastro-esophageal reflux disease without esophagitis; E66.01 Morbid (severe) obesity due to excess calories; Z68.39 Body mass index [BMI] 39.0-39.9, adult; Z80.0 Family history of malignant neoplasm of digestive organs; Z82.3 Family history of stroke; Z82.5 Family history of asthma and other chronic lower respiratory diseases; Z83.3 Family history of diabetes mellitus; Z88.6 Allergy status to analgesic agent; Z23 Encounter for immunization
CPT/HCPCS: 36415; 36600; 99291; J7620; J7626; 71045; 80053; 80061; 82803; 83036; 83735; 84439; 84443; 85025; 90656; 93306; 94640; 94644; 96361; 96374; 96375; J1650; J2060; J2930; J3475; J7030

== ENCOUNTER 2018-11-06 23:26 | Emergency (ER) | payer OTHER ==
[~2018-11-06] VITALS: Ht 167.6 cm; Wt 113.0 kg
[~2018-11-06 23:26] MED LIST changes: +CETI10TA18 PO; +FAMO20TA7 PO; +FLUT16SP NAS; +GABA-826 PO; +PRED5TAB PO
--- NOTE | 2018-11-06 23:38 | NUR ---
Pt ambulated to room with EDT.
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
[2018-11-06] MEDS ORDERED: ALBU18HF INH (23:59)
--- NOTE | 2018-11-07 | NUR ---
RN in the give pt larger gown to change into, pt sitting cross-legged on gurney, talking on her phone. Pt using tissues with her right hand with no apparent distress.
--- NOTE | 2018-11-07 00:13 | NUR ---
Pt to imaging, with tech, via guchinedu.
[2018-11-07] MEDS ORDERED: ALBUTEROL/IPRATROPIUM 2.5MG/0.5MG, 3 ML ONE (00:27)
[2018-11-07] MEDS ORDERED: ALBUTEROL/IPRATROPIUM 2.5MG/0.5MG, 3 ML NPPB ONE (00:30)
[2018-11-07] MEDS ORDERED: KETOROLAC 30 MG/1 ML IM ONE (00:30)
--- NOTE | 2018-11-07 00:32 | NUR ---
RT at bedside. Pt states "toradol doesn't work for me." This RN will discuss with Kristel LASSITER.
[2018-11-07] MEDS ORDERED: KETOROLAC 30 MG/1 ML ONE (00:42)
--- NOTE | 2018-11-07 00:47 | NUR ---
Pt medicated per MAR.
[2018-11-07 00:49] VITALS: BP 114/68
--- NOTE | 2018-11-07 01:18 | NUR ---
Dr. Hurley at bedside to evaluate pt and discuss ED findings and d/c information.
--- NOTE | 2018-11-07 01:25 | NUR ---
Pt reports significant pain relief from IM toradol. Pt changing into gown.
--- NOTE | 2018-11-07 01:30 | NUR ---
JOSE RAUL WRAP APPLIED TO RIGHT WRIST FOR PT COMFORT. Patient/Caregiver given discharge instructions and they have confirmed that they understand the instructions. Patient ambulatory with steady gait.
== END 2018-11-07 01:47 | disposition home or self-care (01) ==
LOC: ED 11-07 01:06
DX: G89.11 Acute pain due to trauma (principal); M54.2 Cervicalgia; M54.5 Low back pain; M25.511 Pain in right shoulder; M25.531 Pain in right wrist; J44.9 Chronic obstructive pulmonary disease, unspecified; F17.210 Nicotine dependence, cigarettes, uncomplicated; V49.09XA Driver injured in collision with other motor vehicles in nontraffic accident, initial encounter; Y93.89 Activity, other specified; Y92.89 Other specified places as the place of occurrence of the external cause; Y99.8 Other external cause status
CPT/HCPCS: 72110; 73030; 73110; 94640; 96372; 99283; J1885; J7620

== ENCOUNTER 2019-03-04 16:10 | Emergency (ER) | payer SELFPAY ==
[~2019-03-04] VITALS: Ht 167.6 cm; Wt 109.0 kg
[~2019-03-04 16:10] MED LIST changes: -FLUT16SP NAS; +FLUT16SP24 NAS
[2019-03-04] MEDS ORDERED: ALBUTEROL/IPRATROPIUM 2.5MG/0.5MG, 3 ML NPPB ONE (16:30)
--- NOTE | 2019-03-04 16:32 | NUR ---
PT BIB [facility] FOR WHEEZING WHEN SHE AWOKE AND HOME TREATMENTS DID NOT HELP. PT HAS HX OF COPD/ASTHMA AND HAS BEEN INTUBATE DIN THE PAST. PT WAS GIVEN ALBUTEROL TREATMENT BY DUANE PT A WITH RELIEF. PT IS NOW MORE RELAXED AND BREATHING IS NOT LABORED. PT MEICATED ORDERED.
[2019-03-04] MEDS ORDERED: ALBUTEROL/IPRATROPIUM 2.5MG/0.5MG, 3 ML ONE (16:48)
--- NOTE | 2019-03-04 17:29 | NUR ---
LUNCH RN: PT AMB IN HALLS FOR ROAD TEST, HR 147 SATS ON RA 92-93%. MD TO BE UPDATED
--- NOTE | 2019-03-04 17:50 | NUR ---
LUNCH RN: MD TO BEDSIDE TO RECHECK PT AND UPDATE ON POC. PT TO BE DCd
[2019-03-04 18:12] VITALS: BP 126/76
== END 2019-03-04 18:14 | disposition home or self-care (01) ==
LOC: ED 18:05
DX: J44.1 Chronic obstructive pulmonary disease with (acute) exacerbation (principal)
CPT/HCPCS: 71045; 94640; 99283; J7512

== ENCOUNTER 2019-03-17 05:14 | Emergency (ER) | payer SELFPAY ==
[~2019-03-17] VITALS: Ht 167.6 cm; Wt 114.4 kg
--- NOTE | 2019-03-17 05:41 | NUR ---
PT HERE FOR SOB THAT STARTED AT 0200. PT HAS HX OF ASTHMA AND WAS SEEN FOR SAME APPROX 1 WEEK AGO. 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 VSS. PT MEDICATED WITH PREDNISONE. XRAY AT BEDSIDE
[2019-03-17] MEDS ORDERED: BUDESONIDE 0.5 MG/2 ML INHA ONE (05:44)
[2019-03-17] MEDS ORDERED: ALBUTEROL/IPRATROPIUM 2.5MG/0.5MG, 3 ML ONE (05:44)
--- NOTE | 2019-03-17 05:53 | NUR ---
Estela (x-ray tech) - delay due to patient not changed.
[2019-03-17 06:36] VITALS: BP 124/76
--- NOTE | 2019-03-17 07:11 | NUR ---
Report SBAR from Kassandra. Pt comfortable.
--- NOTE | 2019-03-17 07:36 | NUR ---
Patient given discharge instructions and they have confirmed that they understand the instructions. Patient ambulatory with steady gait.
== END 2019-03-17 07:39 | disposition home or self-care (01) ==
LOC: ED 06:00
DX: J45.51 Severe persistent asthma with (acute) exacerbation (principal); F17.210 Nicotine dependence, cigarettes, uncomplicated
CPT/HCPCS: 71045; 93005; 94640; 99283; J7512

== ENCOUNTER 2019-04-13 04:05 | Emergency (ER) | payer SELFPAY ==
[~2019-04-13] VITALS: Ht 167.6 cm; Wt 112.9 kg
[2019-04-13 06:48] VITALS: BP 112/78
== END 2019-04-13 06:48 | disposition home or self-care (01) ==
LOC: ED 06:48
DX: J45.41 Moderate persistent asthma with (acute) exacerbation (principal); F17.200 Nicotine dependence, unspecified, uncomplicated; J43.9 Emphysema, unspecified
CPT/HCPCS: 94640; 99284; J7512

== ENCOUNTER 2019-05-18 03:14 | Emergency (ER) | payer OTHER ==
[~2019-05-18] VITALS: Ht 167.6 cm; Wt 113.9 kg
[~2019-05-18 03:14] MED LIST changes: -GUAI200T3 PO; +GUAI200T37 PO
[2019-05-18] MEDS ORDERED: ALBUTEROL/IPRATROPIUM 2.5MG/0.5MG, 3 ML NPPB ONE (03:30)
[2019-05-18] MEDS ORDERED: ALBUTEROL/IPRATROPIUM 2.5MG/0.5MG, 3 ML ONE ×2 (03:35→04:16)
--- NOTE | 2019-05-18 03:38 | NUR ---
PT. TO ED WITH C/O SOB INCREASINGLY WORSE TODAY. HX OF ASTHMA AND COPD. HOME NEB AND INHAILER NOT HELPING. PT. REPORTS HX OF ED VISITS FOR SAME IN THE PAST. MONITORS PLACED. MEDICATED PER NOV. RT AT BS FOR BREATHING TX.
--- NOTE | 2019-05-18 04:10 | NUR ---
RT CALLED FOR 2ND TREATMENT PER ERP.
--- NOTE | 2019-05-18 04:16 | NUR ---
RT AT BS FOR 2ND BREATHING TX.
[2019-05-18 04:23] VITALS: BP 96/63
[2019-05-18] MEDS ORDERED: ALBUTEROL/IPRATROPIUM 2.5MG/0.5MG, 3 ML NPPB SCH (04:30)
== END 2019-05-18 04:37 ==
LOC: ED 04:31
DX: J44.1 Chronic obstructive pulmonary disease with (acute) exacerbation (principal); F17.200 Nicotine dependence, unspecified, uncomplicated
CPT/HCPCS: 71045; 94640; 99284; J7512; J7620

== ENCOUNTER 2019-07-25 17:33 | Emergency (ER) | payer SELFPAY ==
[~2019-07-25] VITALS: Ht 167.6 cm; Wt 115.0 kg
--- NOTE | 2019-07-25 17:41 | NUR ---
UC: RT PAGED
[2019-07-25] MEDS ORDERED: ALBUTEROL/IPRATROPIUM 2.5MG/0.5MG, 3 ML ONE ×3 (17:46→19:36)
--- NOTE | 2019-07-25 17:48 | NUR ---
PT STATES SHE WOKE UP AND WAS HAVING SO SOB, DENIES CP. PT STATES SHE RAN OUT OF HER INHALER AND SHE JUST NEEDS SOME MEDS FOR HER LUNGS SO SHE CAN GET BACK TO WORK. PT TO BP, CARD MONITOR, CONT PULSE OX RT HERE TO GIVE TX
[2019-07-25] MEDS ORDERED: ALBUTEROL SULFATE 2.5 MG/3 ML ONE (18:11)
--- NOTE | 2019-07-25 18:43 | NUR ---
PT MEDICATED PER MAR, GIVEN WARM BLANKET, NAD NOTED
--- NOTE | 2019-07-25 19:05 | NUR ---
REPORT RECEIVED FROM MARGO LIANG. PT RESTING ON GURNEY, RESPIRATIONS EVEN AND UNLABORED. PT ON MONITORING, ALL SAFETY MEASURES IN PLACE.
--- NOTE | 2019-07-25 19:42 | NUR ---
PT RECEIVING BREATHING TX NOW.
[2019-07-25] MEDS ORDERED: ALBUTEROL/IPRATROPIUM 2.5MG/0.5MG, 3 ML NPPB ONE (20:30)
[2019-07-25] MEDS: ALBUTEROL/IPRATROPIUM 2.5MG/0.5MG, 3 ML NPPB SCH (20:41)
--- NOTE | 2019-07-25 20:42 | NUR ---
PT RECEIVING 3RD NEB TX NOW. PT PROVIDED SANDWICH AND SPRITE ON REQUEST. PT PROVIDED ADDITIONAL BLANKETS.
[2019-07-25 21:04] VITALS: BP 111/70
== END 2019-07-25 21:12 | disposition home or self-care (01) ==
LOC: ED 20:45
DX: J45.31 Mild persistent asthma with (acute) exacerbation (principal)
CPT/HCPCS: 94640; 99284; J7512; J7620

== ENCOUNTER 2019-08-13 14:51 | Emergency (ER) | payer SELFPAY ==
[~2019-08-13] VITALS: Ht 167.6 cm; Wt 119.3 kg
--- NOTE | 2019-08-13 15:18 | NUR ---
PATIENT BROUGTH BACK FROM TRIAGE WITH CHIEF COMPLAINT OF SOB RELATED TO ASTHMA ATTACK. PATIENT STATES IT STARTED LAST NIGHT. THE PATIENT IS ALERT, ORIENTED, WARM AND DRY.
[2019-08-13] MEDS ORDERED: ALBUTEROL/IPRATROPIUM 2.5MG/0.5MG, 3 ML ONE (15:51)
[2019-08-13] MEDS ORDERED: ALBUTEROL SULFATE 2.5 MG/3 ML ONE (15:51)
[2019-08-13 15:55] LABS: BASOPHILS # (AUTO) 0.12 x10^3/uL (0-0.1); BASOPHILS % (AUTO) 1 % (0-1); EOSINOPHILS # (AUTO) 0.73 x10^3/uL (0-0.4); EOSINOPHILS % (AUTO) 6 % (1-7); LYMPHOCYTES # (AUTO) 1.97 x10^3/uL (1-3.4); LYMPHOCYTES % (AUTO) 15 % (22-44); MD NO; MEAN CORPUSCULAR HEMOGLOBIN 32.9 pg (27.0-34.8); MEAN CORPUSCULAR HGB CONC 33.6 g/dL (32.4-35.8); MEAN CORPUSCULAR VOLUME 97.9 fL (80-100); MEAN PLATELET VOLUME 7.8 fL (7.4-10.4); MONOCYTES # (AUTO) 0.85 x10^3/uL (0.2-0.8); MONOCYTES % (AUTO) 7 % (2-9); NEUTROPHILS # (AUTO) 9.36 x10^3/uL (1.8-6.8); NEUTROPHILS % (AUTO) 72 % (42-75); PLATELET COUNT 225 x10^3/uL (130-400); RED BLOOD COUNT 4.53 x10^6/uL (3.82-5.3); RED CELL DISTRIBUTION WIDTH 13.6 % (9.6-15.2)
[2019-08-13] MEDS ORDERED: ALBUTEROL SULFATE 2.5 MG/3 ML NPPB ONE (16:00)
[2019-08-13] MEDS ORDERED: ALBUTEROL/IPRATROPIUM 2.5MG/0.5MG, 3 ML NEB ONE (16:00)
[2019-08-13 16:29] LABS: CALCIUM 8.6 mg/dL (8.5-10.1); CREATININE 0.94 mg/dL (0.55-1.02)
[2019-08-13 16:30] VITALS: BP 121/76
--- NOTE | 2019-08-13 16:30 | NUR ---
BREATHING TREATMENT ADMINISTERED BY RT
[2019-08-13 16:38] LABS: ANION GAP 3 mmol/L (5-15); CHLORIDE 112 mmol/L (98-107)
--- NOTE | 2019-08-13 17:32 | NUR ---
DISCHARGE INSTRUCTIONS REVIEWED.
== END 2019-08-13 17:38 | disposition home or self-care (01) ==
LOC: ED 15:36
DX: J44.1 Chronic obstructive pulmonary disease with (acute) exacerbation (principal)
CPT/HCPCS: 36415; 71045; 80048; 85025; 93005; 94640; 99284; J7512; J7613; J7620

== ENCOUNTER 2019-10-08 11:27 | Emergency (ER) | payer SELFPAY ==
[~2019-10-08] VITALS: Ht 167.6 cm; Wt 116.3 kg
[2019-10-08 11:34] VITALS: BP 124/76
== END 2019-10-08 12:17 | disposition home or self-care (01) ==
LOC: ED 12:14
DX: J45.30 Mild persistent asthma, uncomplicated (principal); Z76.0 Encounter for issue of repeat prescription; F17.200 Nicotine dependence, unspecified, uncomplicated
CPT/HCPCS: 99283; J7512

== ENCOUNTER 2019-12-02 10:02 | Emergency (ER) | payer SELFPAY ==
[~2019-12-02] VITALS: Ht 167.6 cm; Wt 115.0 kg
[2019-12-02 10:04] VITALS: BP 141/83
--- NOTE | 2019-12-02 10:17 | NUR ---
HX COPD, WHEEZEING THIS MORNING WHICH IS NORMAL PER PATIENT. TOOK TREATMENT AT HOME WHICH HELPED. OUT OF ALBUTEROL INHALER. DENIES PAIN, SOB. REQUSTING WORK NOTE TO GO BACK TO WORK. NO SIGNS OF DISCOMFORT, DENIES CP, N/V, FEVER.
[2019-12-02] MEDS ORDERED: ALBUTEROL/IPRATROPIUM 2.5MG/0.5MG, 3 ML NPPB SCH (11:00)
[2019-12-02] MEDS ORDERED: ALBUTEROL/IPRATROPIUM 2.5MG/0.5MG, 3 ML ONE (11:05)
--- NOTE | 2019-12-02 11:11 | NUR ---
RT AT BEDSIDE
--- NOTE | 2019-12-02 11:52 | NUR ---
DISCHARGE INSTRUCTIONS REVIEWED
== END 2019-12-02 12:05 | disposition home or self-care (01) ==
LOC: ED 10:30
DX: J45.31 Mild persistent asthma with (acute) exacerbation (principal); F17.210 Nicotine dependence, cigarettes, uncomplicated
CPT/HCPCS: 94640; 99283; 99406; J7512

== ENCOUNTER 2020-02-23 09:29 | Emergency (ER) | payer OTHER ==
[~2020-02-23] VITALS: Ht 167.6 cm; Wt 109.1 kg
[2020-02-23] MEDS ORDERED: MAALOX/HYOSCYAMINE/LIDOCAINE 45 ML BTL ONE (09:49)
[2020-02-23] MEDS ORDERED: ACETAMINOPHEN 500 MG TABLET ONE (09:49)
[2020-02-23] MEDS ORDERED: ACETAMINOPHEN 325 MG TABLET ONE ×2 (09:52→09:54)
[2020-02-23] MEDS ORDERED: MAALOX/HYOSCYAMINE/LIDOCAINE 45 ML BTL PO ONE (10:00)
[2020-02-23] MEDS ORDERED: ACETAMINOPHEN 325 MG TABLET PO ONE (10:00)
--- NOTE | 2020-02-23 10:15 | NUR ---
LATE NOTE D/T PT CARE: BIB [facility]. PT COMPLAINING OF INTERMITTENT CP, ESPECIALLY WITH DEEP BREATH, THAT BEGAN THIS MORNING. PT STATES SHE WAS OUT DRINKING LAST NIGHT AND BEGAN "NOT FEELING WELL". PT HAS HX OF ASTHMA. 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 PA AT BEDSIDE. MEDICATED PT PER EMAR. WILL CONTINUE TO MONITOR PT.
[2020-02-23 10:27] LABS: ALANINE AMINOTRANSFERASE 15 U/L (12-78); ALBUMIN 3.6 g/dL (3.4-5.0); ANION GAP 16 mmol/L (5-15); CALCIUM 8.7 mg/dL (8.5-10.1); CHLORIDE 107 mmol/L (98-107); CREATININE 1.14 mg/dL (0.55-1.02)
[2020-02-23 10:37] LABS: ALKALINE PHOSPHATASE 69 U/L (45-117); BILIRUBIN,TOTAL 0.1 mg/dL (0.2-1.0); TOTAL PROTEIN 7.6 g/dL (6.4-8.2); TROPONIN I < 0.015 ng/mL (0.000-0.045)
[2020-02-23 10:56] LABS: MEAN CORPUSCULAR HEMOGLOBIN 32.6 pg (27.0-34.8); MEAN CORPUSCULAR HGB CONC 33.5 g/dL (32.4-35.8); MEAN CORPUSCULAR VOLUME 97.4 fL (80-100); MEAN PLATELET VOLUME 9.1 fL (7.4-10.4); PLATELET COUNT 312 x10^3/uL (130-400); RED BLOOD COUNT 4.65 x10^6/uL (3.82-5.3); RED CELL DISTRIBUTION WIDTH 13.2 % (9.6-15.2)
[2020-02-23 11:21] LABS: MD YES
[2020-02-23 11:26] LABS: BANDS%(MANUAL) 1 % (0-7); EOS% (MANUAL) 1 % (1-7); LYMPH#(MANUAL) 3.13 x10^3/uL (1-3.4); LYMPHS% (MANUAL) 31 % (22-44); MONOS% (MANUAL) 3 % (2-9); SEG#(MANUAL) 6.46 x10^3/uL (1.8-6.8); SEGS% (MANUAL) 64 % (42-75)
[2020-02-23 11:28] LABS: <PLATELET ESTIMATE> ADEQUATE; <PLT MORPHOLOGY> NORMAL PLT MORPH; <RBC MORPHOLOGY> NORMAL
[2020-02-23] MEDS ORDERED: SODIUM CHLORIDE 0.9% 1,000ML IVBOLUS ONE (11:30)
[2020-02-23 12:21] VITALS: BP 107/51
--- NOTE | 2020-02-23 12:22 | NUR ---
PT STATES SHE IS "FEELING BETTER BUT TIRED". PA AND IN ROOM TO EXPLAIN DC INSTRUCTIONS. PT VERBALIZED UNDERSTANDING. ASSISTED PT WITH GETTING DRESSED. PT ABLE TO AMBULATE WITHOUT ASSISTNACE. VS STABLE. DC'D IV. PT WAS GIVEN A CAB VOUCHER WELL HER DC INSTRUCTIONS. PT AMBULATED TO DISCHARGE DESK WITHOUT ASSISTANCE. [employer] CALLED AND VOUCHER GIVEN TO PT.
== END 2020-02-23 12:25 | disposition home or self-care (01) ==
LOC: ED 12:19
DX: R07.89 Other chest pain (principal); R00.0 Tachycardia, unspecified; E86.0 Dehydration; J43.9 Emphysema, unspecified; F17.200 Nicotine dependence, unspecified, uncomplicated; Z88.6 Allergy status to analgesic agent
CPT/HCPCS: 36415; 71045; 80053; 83690; 84484; 85025; 85379; 93005; 96360; 99285; J7030

== ENCOUNTER 2020-05-01 05:26 | Emergency (ER) | payer OTHER ==
[~2020-05-01] VITALS: Ht 167.6 cm; Wt 115.0 kg
[2020-05-01 05:31] VITALS: BP 107/68
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
[2020-05-01] MEDS ORDERED: LORazepam 1MG TABLET ONE (05:38)
[2020-05-01] MEDS ORDERED: LORazepam 1MG TABLET PO ONE (06:00)
[2020-05-01 06:02] LABS: BASOPHILS # (AUTO) 0.25 x10^3/uL (0-0.1); BASOPHILS % (AUTO) 2 % (0-1); EOSINOPHILS # (AUTO) 0.32 x10^3/uL (0-0.4); EOSINOPHILS % (AUTO) 2 % (1-7); LYMPHOCYTES # (AUTO) 3.75 x10^3/uL (1-3.4); LYMPHOCYTES % (AUTO) 27 % (22-44); MD NO; MEAN CORPUSCULAR HEMOGLOBIN 32.9 pg (27.0-34.8); MEAN CORPUSCULAR HGB CONC 34.1 g/dL (32.4-35.8); MEAN CORPUSCULAR VOLUME 96.4 fL (80-100); MEAN PLATELET VOLUME 8.6 fL (7.4-10.4); MONOCYTES # (AUTO) 0.84 x10^3/uL (0.2-0.8); MONOCYTES % (AUTO) 6 % (2-9); NEUTROPHILS # (AUTO) 8.64 x10^3/uL (1.8-6.8); NEUTROPHILS % (AUTO) 63 % (42-75); PLATELET COUNT 235 x10^3/uL (130-400); RED BLOOD COUNT 4.64 x10^6/uL (3.82-5.3); RED CELL DISTRIBUTION WIDTH 14.1 % (9.6-15.2)
[2020-05-01 06:13] LABS: ALBUMIN 3.4 g/dL (3.4-5.0); ANION GAP 8 mmol/L (5-15); CALCIUM 8.2 mg/dL (8.5-10.1); CHLORIDE 115 mmol/L (98-107)
[2020-05-01 06:17] LABS: ALANINE AMINOTRANSFERASE 15 U/L (12-78); ALKALINE PHOSPHATASE 57 U/L (45-117); BILIRUBIN, DIRECT 0.1 mg/dL (0.1-0.2); BILIRUBIN,INDIRECT 0.2 mg/dL (0.0-2.0); BILIRUBIN,TOTAL 0.3 mg/dL (0.2-1.0); CREATININE 0.87 mg/dL (0.55-1.02); TOTAL PROTEIN 6.8 g/dL (6.4-8.2)
--- NOTE | 2020-05-01 07:12 | NUR ---
PT RESTING ON GURNEY AT THIS TIME, DROWSY BUT RESPONSIVE TO VERBAL STIMULI. PT BP CUFF ON PT WRIST, LOW READING OBSERVED ON MONITOR, ATTEMPT TO REPOSITION BP CUFF, PT BECOMES COMABATIVE, "LEAVE ME THE FUCK ALONE" "STOP TOUCHING ME" THIS RN REPORTS TO ERMD, BP NOT ACCURATED AND PT REFUSING RECHECK. OK TO LEAVE MONITORING EQUIP OFF, PT TO MTF
--- NOTE | 2020-05-01 10:56 | NUR ---
PT DEMONSTRATING STEADY GAIT, PT NOW COOPERATIVE AND PLEASENT STATES "IM STILL TIRED BUT I NEED TO GET HOME SO I CAN GET READY FOR MY PHYSICAL THERAPY APPOINTMENT." PT DRESSED SELF IN RM. PT ESCORTED TO DC DESK, PT HAS RIDE HOME. PT WITH ALL BELONGINGS ON DC
== END 2020-05-01 10:57 | disposition home or self-care (01) ==
LOC: ED 08:55
DX: F10.120 Alcohol abuse with intoxication, uncomplicated (principal); G89.29 Other chronic pain; M54.5 Low back pain; R06.02 Shortness of breath; J45.909 Unspecified asthma, uncomplicated; Y90.0 Blood alcohol level of less than 20 mg/100 ml
CPT/HCPCS: 36415; 71045; 80048; 80076; 80307; 82040; 83690; 85025; 99284

== ENCOUNTER 2020-07-13 18:22 | Emergency (ER) | payer SELFPAY ==
[~2020-07-13] VITALS: Ht 167.6 cm; Wt 110.5 kg
--- NOTE | 2020-07-13 18:36 | NUR ---
PATIENT WALKED BACK FROM TRIAGE WITH CHIEF C/O ASTHMA EXACERBATION X2 DAYS. PATIENT STATES SHE HAS TRIED NEBULIZER TREATMENTS AT HOME, BUT UNABLE TO CATCH HER BREATH. SYMPTOMS HAVE NOT IMPROVED AT HOME. NO SIGNS OF ACUTE DISTRESS, CONNECTED TO VITALS MACHINE, CALL LIGHT WITHIN REACH.
[2020-07-13] MEDS ORDERED: ALBUTEROL SULFATE 2.5 MG/3 ML NPPB ONE (19:00)
[2020-07-13] MEDS ORDERED: DEXAMETHASONE 4 MG/ML, 1ML IM ONE (19:00)
[2020-07-13] MEDS ORDERED: DEXAMETHASONE 4 MG/ML, 5ML ONE (19:06)
[2020-07-13] MEDS ORDERED: ALBUTEROL SULFATE 2.5 MG/3 ML ONE (19:06)
--- NOTE | 2020-07-13 19:14 | NUR ---
BREATHING TREATMENT STARTED.
[2020-07-13 19:25] VITALS: BP 103/65
--- NOTE | 2020-07-13 19:38 | NUR ---
Patient given discharge instructions and prescription they have confirmed that they understand the instructions, all questions answered. Patient ambulatory with steady gait.
== END 2020-07-13 19:39 | disposition home or self-care (01) ==
LOC: ED 18:46
DX: J45.31 Mild persistent asthma with (acute) exacerbation (principal); R06.02 Shortness of breath; F17.200 Nicotine dependence, unspecified, uncomplicated
CPT/HCPCS: 94640; 96372; 99283; J1100; J7613

== ENCOUNTER 2020-08-22 09:51 | Emergency (ER) | payer SELFPAY ==
[~2020-08-22] VITALS: Ht 167.6 cm; Wt 110.8 kg
[2020-08-22] MEDS ORDERED: ALBUTEROL/IPRATROPIUM 2.5MG/0.5MG, 3 ML NPPB SCH (10:30)
[2020-08-22] MEDS ORDERED: ALBUTEROL/IPRATROPIUM 2.5MG/0.5MG, 3 ML ONE (10:36)
[2020-08-22 11:43] VITALS: BP 135/78
== END 2020-08-22 11:45 | disposition home or self-care (01) ==
LOC: ED 10:19
DX: J45.41 Moderate persistent asthma with (acute) exacerbation (principal); F17.210 Nicotine dependence, cigarettes, uncomplicated
CPT/HCPCS: 71045; 94640; 99283; 99406; J7512

== ENCOUNTER 2020-09-09 20:54 | Emergency (ER) | payer SELFPAY ==
[~2020-09-09] VITALS: Ht 167.6 cm; Wt 111.0 kg
[2020-09-09] MEDS ORDERED: METHOCARBAMOL 750 MG TABLET ONE (21:14)
--- NOTE | 2020-09-09 21:22 | NUR ---
PATIENT KEPT PULLING LEADS OFF AND REFUSED EKG AT THIS TIME
[2020-09-09 21:32] LABS: BASOPHILS % (AUTO) 1 % (0-1); EOSINOPHILS % (AUTO) 9 % (1-7); LYMPHOCYTES % (AUTO) 22 % (22-44); MEAN CORPUSCULAR HEMOGLOBIN 32.7 pg (27.0-34.8); MEAN PLATELET VOLUME 8.2 fL (7.4-10.4); MONOCYTES % (AUTO) 8 % (2-9); NEUTROPHILS % (AUTO) 60 % (42-75); PLATELET COUNT 295 x10^3/uL (130-400); RED BLOOD COUNT 4.68 x10^6/uL (3.82-5.3); RED CELL DISTRIBUTION WIDTH 13.6 % (9.6-15.2)
[2020-09-09 21:33] LABS: MD NO
[2020-09-09] MEDS ORDERED: OXYcodone/APAP 10/325MG TABLET ONE (21:33)
[2020-09-09 21:44] LABS: ALBUMIN 3.5 g/dL (3.4-5.0); CREATININE 1.02 mg/dL (0.55-1.02)
[2020-09-09 21:53] LABS: ANION GAP 5 mmol/L (5-15); CHLORIDE 112 mmol/L (98-107)
[2020-09-09] MEDS ORDERED: LORazepam 1MG TABLET ONE (21:58)
[2020-09-09] MEDS ORDERED: ALBUTEROL SULFATE 2.5 MG/3 ML ONE ×2 (21:59→22:36)
[2020-09-09] MEDS ORDERED: LORazepam 1MG TABLET PO ONE (22:00)
[2020-09-09] MEDS: ALBUTEROL SULFATE 2.5 MG/3 ML NPPB SCH ×2 (22:04→22:40)
--- NOTE | 2020-09-09 22:04 | NUR ---
ATIVAN AND PREDNISONE GIVEN PER EMAR. NEB TX INITIATED.
--- NOTE | 2020-09-09 22:22 | NUR ---
VO DR CORTES TO REPEAT NEB 15 MINS AFTER INITAL NEB IS COMPLETED.
--- NOTE | 2020-09-09 22:30 | NUR ---
PT REPORT TO MARGO EVANS. PT CARE TRANSFERRED.
--- NOTE | 2020-09-09 23:15 | NUR ---
RECEIVED REPORT FROM MARGO EVANS
[2020-09-10] MEDS ORDERED: ALBUTEROL/IPRATROPIUM 2.5MG/0.5MG, 3 ML NPPB ONE
[2020-09-10] MEDS: ALBUTEROL SULFATE 2.5 MG/3 ML NPPB SCH (00:11)
[2020-09-10] MEDS ORDERED: ALBUTEROL/IPRATROPIUM 2.5MG/0.5MG, 3 ML ONE (00:13)
--- NOTE | 2020-09-10 00:22 | NUR ---
DUONEB TREATMENT ONGOING.
[2020-09-10 00:30] VITALS: BP 117/78
--- NOTE | 2020-09-10 00:42 | NUR ---
BREAK RN; Patient given discharge instructions and they have confirmed that they understand the instructions. Patient ambulatory with steady gait.
[2020-09-10] MEDS ORDERED: LORazepam 2 MG/ML, 1ML ONE (00:55)
== END 2020-09-10 00:48 | disposition home or self-care (01) ==
LOC: ED 22:04
DX: J45.21 Mild intermittent asthma with (acute) exacerbation (principal); R00.0 Tachycardia, unspecified; R06.02 Shortness of breath
CPT/HCPCS: 36415; 71045; 80048; 82040; 83880; 85025; 93005; 94640; 99285; J7512; J7613

== ENCOUNTER 2020-09-29 00:59 | Emergency (ER) | payer OTHER ==
[~2020-09-29] VITALS: Ht 167.6 cm; Wt 111.0 kg
[2020-09-29] MEDS ORDERED: ALBUTEROL SULFATE 2.5 MG/3 ML NPPB ONE (01:30)
[2020-09-29] MEDS ORDERED: ALBUTEROL SULFATE 2.5 MG/3 ML ONE (01:39)
[2020-09-29 02:18] LABS: MEAN CORPUSCULAR HEMOGLOBIN 33.1 pg (27.0-34.8); MEAN CORPUSCULAR HGB CONC 34.2 g/dL (32.4-35.8); MEAN PLATELET VOLUME 9.3 fL (7.4-10.4); PLATELET COUNT 252 x10^3/uL (130-400); RED BLOOD COUNT 4.05 x10^6/uL (3.82-5.3); RED CELL DISTRIBUTION WIDTH 13.2 % (9.6-15.2)
[2020-09-29 02:22] LABS: ALBUMIN 3.5 g/dL (3.4-5.0); CALCIUM 8.8 mg/dL (8.5-10.1)
[2020-09-29 02:28] LABS: CREATININE 0.97 mg/dL (0.55-1.02); TROPONIN I < 0.015 ng/mL (0.000-0.045)
[2020-09-29 02:30] LABS: ANION GAP 3 mmol/L (5-15)
[2020-09-29 02:31] LABS: CHLORIDE 111 mmol/L (98-107)
[2020-09-29 02:53] LABS: MD YES
[2020-09-29 02:57] LABS: BAND#(MANUAL) 0.08 x10^3/uL; BANDS%(MANUAL) 1 % (0-7); LYMPH#(MANUAL) 0.55 x10^3/uL (1-3.4); LYMPHS% (MANUAL) 7 % (22-44); MONOS% (MANUAL) 5 % (2-9); REACTIVE LYMPHS # (MANUAL) 0.16 x10^3/uL (0-0); REACTIVE LYMPHS % (MANUAL) 2 % (0-0); SEG#(MANUAL) 6.72 x10^3/uL (1.8-6.8); SEGS% (MANUAL) 85 % (42-75)
[2020-09-29 02:58] LABS: <PLATELET ESTIMATE> ADEQUATE; <RBC MORPHOLOGY> NORMAL
[2020-09-29 02:59] LABS: LARGE PLATELETS 1+
[2020-09-29 03:24] VITALS: BP 134/89
== END 2020-09-29 03:26 | disposition home or self-care (01) ==
LOC: ED 03:00
DX: J45.31 Mild persistent asthma with (acute) exacerbation (principal); F17.210 Nicotine dependence, cigarettes, uncomplicated
CPT/HCPCS: 36415; 71045; 80048; 82040; 84484; 85025; 93005; 94640; 99285; 99406; J7512; J7613

== ENCOUNTER 2021-03-08 20:20 | Emergency (ER) | payer MEDICAID, OTHER ==
[~2021-03-08] VITALS: Ht 167.6 cm; Wt 105.5 kg
[2021-03-08] MEDS ORDERED: ALBUTEROL/IPRATROPIUM 2.5MG/0.5MG, 3 ML NPPB ONE (21:00)
[2021-03-08] MEDS ORDERED: ALBUTEROL/IPRATROPIUM 2.5MG/0.5MG, 3 ML ONE (21:32)
[2021-03-08 21:57] LABS: BASOPHILS % (AUTO) 1 % (0-1); EOSINOPHILS % (AUTO) 14 % (1-7); LYMPHOCYTES % (AUTO) 24 % (22-44); MEAN CORPUSCULAR HEMOGLOBIN 33.4 pg (27.0-34.8); MEAN CORPUSCULAR HGB CONC 34.7 g/dL (32.4-35.8); MEAN PLATELET VOLUME 8.3 fL (7.4-10.4); MONOCYTES % (AUTO) 8 % (2-9); NEUTROPHILS % (AUTO) 52 % (42-75); PLATELET COUNT 263 x10^3/uL (130-400); RED BLOOD COUNT 4.98 x10^6/uL (3.82-5.3); RED CELL DISTRIBUTION WIDTH 13.4 % (9.6-15.2)
[2021-03-08 22:05] LABS: ALBUMIN 3.3 g/dL (3.4-5.0); ANION GAP 7 mmol/L (5-15); CALCIUM 8.8 mg/dL (8.5-10.1); CHLORIDE 111 mmol/L (98-107); CREATININE 0.79 mg/dL (0.55-1.02)
--- NOTE | 2021-03-08 22:10 | NUR ---
PT STATES SHE FEELS BETTER AFTER NEB TX.
[2021-03-08 22:32] VITALS: BP 106/57
--- NOTE | 2021-03-08 22:42 | NUR ---
ALL RESULTS ARE BACK AT THIS TIME. CHART UP FOR RECHECK.
== END 2021-03-08 23:02 | disposition home or self-care (01) ==
LOC: ED 22:45
DX: J45.41 Moderate persistent asthma with (acute) exacerbation (principal); J43.9 Emphysema, unspecified
CPT/HCPCS: 36415; 71045; 80048; 82040; 85025; 93005; 93970; 94640; 99285; J7512

== ENCOUNTER 2021-04-29 21:04 | Emergency (ER) | payer MEDICAID ==
[~2021-04-29] VITALS: Ht 167.6 cm; Wt 108.0 kg
[2021-04-29] MEDS ORDERED: ALBUTEROL/IPRATROPIUM 2.5MG/0.5MG, 3 ML ONE (21:50)
[2021-04-29] MEDS ORDERED: ALBUTEROL SULFATE 2.5 MG/3 ML ONE (21:50)
[2021-04-29] MEDS ORDERED: ALBUTEROL/IPRATROPIUM 2.5MG/0.5MG, 3 ML NEB ONE (22:00)
[2021-04-29] MEDS ORDERED: ALBUTEROL SULFATE 2.5 MG/3 ML NPPB ONE (22:00)
--- NOTE | 2021-04-29 22:03 | NUR ---
post neb re-assessment: now with breath sounds to all allred, pox 92%
[2021-04-29 22:17] VITALS: BP 117/69
== END 2021-04-29 22:54 | disposition home or self-care (01) ==
LOC: ED 21:30
DX: J45.41 Moderate persistent asthma with (acute) exacerbation (principal); F17.200 Nicotine dependence, unspecified, uncomplicated; Z88.6 Allergy status to analgesic agent
CPT/HCPCS: 94640; 99283; J7512

== ENCOUNTER 2021-06-11 07:12 | Emergency (ER) | payer MEDICAID ==
[~2021-06-11] VITALS: Ht 167.6 cm; Wt 107.3 kg
[2021-06-11] MEDS ORDERED: ALBUTEROL/IPRATROPIUM 2.5MG/0.5MG, 3 ML NPPB ONE (07:30)
[2021-06-11] MEDS ORDERED: ALBUTEROL/IPRATROPIUM 2.5MG/0.5MG, 3 ML ONE (07:36)
--- NOTE | 2021-06-11 07:43 | NUR ---
pt given po meds and currently with nebulizing treatment. NAD noted.
--- NOTE | 2021-06-11 08:55 | NUR ---
PT SITTING UP IN BED, RESPIRATIONS EVEN AND UNLABORED ON RA PLAYING ON CELL PHONE. NAD NOTED AT THIS TIME. SIDE RAILS UP, CALL LIGHT IN REACH. AWAITING CXR RESULTS.
[2021-06-11 09:36] VITALS: BP 118/71
== END 2021-06-11 09:42 | disposition home or self-care (01) ==
LOC: ED 07:42
DX: J43.9 Emphysema, unspecified (principal); R06.02 Shortness of breath
CPT/HCPCS: 71045; 93005; 94640; 99283; J7512